=== PATIENT | male | born 1985 | race Caucasian/White ===

== ENCOUNTER 2017-09-25 17:37 | Emergency (ER) | payer OTHER ==
[~2017-09-25] VITALS: Ht 172.7 cm; Wt 75.8 kg
[~2017-09-25 17:37] MED LIST: OMEP40CA41 PO; ONDA4TAB10 SL; PARO10TA PO
[2017-09-25] MEDS ORDERED: SODIUM CHLORIDE 0.9% 1000ML 1,000 ML IV ONE (17:45)
[2017-09-25] MEDS ORDERED: SODIUM CHLORIDE 0.9% 1000ML 1,000 ML IV STA (17:45)
[2017-09-25] MEDS ORDERED: LORAZEPAM 2 MG/ML 1 ML VIAL IV STA (17:45)
[2017-09-25 17:46] VITALS: TEMP 37.1; O2SAT 97; Ht 172.7 cm; Wt 75.8 kg
[2017-09-25 18:01] LABS: BASO % 0.8 %; BASO ABS # 0.08 K/uL (0-0.2); EOS % 0.2 %; EOS ABS # 0.02 K/uL (0-0.5); HEMATOCRIT 46.7 % (42-52); HEMOGLOBIN 15.5 g/dL (14.0-18.0); IG# 0.03 K/uL (0.00-0.02); LYMPH % 13.1 %; LYMPH ABS # 1.25 K/uL (1.2-3.4); MEAN CELL VOLUME 98.1 fL (80-100); MEAN CORPUSCULAR HEMOGLOBIN 32.6 pg (25-34); MEAN CORPUSCULAR HGB CONC 33.2 g/dl (32-36); MEAN PLATELET VOLUME 11.2 fL (7.4-10.4); MONO % 14.9 %; MONO ABS # 1.42 K/uL (0.11-0.59); NEUT % 70.7 %; NEUT ABS # 6.73 K/uL (1.4-6.5); PLATELET COUNT 235 K/uL (130-400); RED CELL DISTRIBUTION WIDTH CV 15.6 % (11.5-14.5); RED CELL DISTRIBUTION WIDTH SD 56.1 fL (36.4-46.3); WHITE BLOOD COUNT 9.53 K/uL (4.8-10.8)
--- NOTE | 2017-09-25 18:13 | EMERGENCY ROOM VISIT NOTE ---
History Report prepared by Shailesh: Filomena Burleson Under the Supervision of: Dr. Dwain Kim M.D. First contact with patient: 17:39 Chief Complaint: SEIZURE Stated Complaint: SEIZURE History of Present Illness The patient is a 31 year old male who presents to the Emergency Room with complaints of an episode of seizure around 30 minutes ago. He presents to the ED by EMS. He was in the cooler at work when his coworkers heard a thud. They found him on the floor. He was foaming at his mouth and had 2 episodes of posturing lasting 10 seconds each. He was found to have bumps on his head and there was blood on the floor of the cooler. He denies any history of seizures. He currently has some head pain in the back of his head. He has some minor neck pain. He does not notice any loose teeth. He has been nauseous which he attributes to starting Paxil recently for anxiety. He was feeling well this morning and has been sleeping normally. He does smoke and use alcohol regularly. He last drank last night. He reports that he is usually able to make it through the day without drinking alcohol. He denies any drug use. He denies having any other medical problems. Source of History: patient, EMS Onset: 30 minutes ago Position: other (generalized) Quality: other (seizure) Timing: other (episodic) Associated Symptoms: + headache, + neck pain, + nausea Review of Systems See HPI for pertinent positives & negatives. A total of 10 systems reviewed and were otherwise negative. Past Medical & Surgical Medical Problems: (1) Anxiety (2) Laceration of fifth finger, left Old medical records were reviewed. Nurse's notes were reviewed and I agree with. Denies history of seizure Family History No pertinent family history stated Social History Smoking Status: Current Every Day Smoker Alcohol Use: heavy Marital Status: single Housing Status: lives alone Occupation Status: employed Current/Historical Medications Scheduled Paroxetine Hcl (Paxil), 10 MG PO DAILY Allergies Coded Allergies: No Known Allergies (Unverified , 09/25/17) Physical Exam Vital Signs Date Time Temp Pulse Resp B/P (MAP) Pulse Ox O2 Delivery O2 Flow Rate FiO2 09/25/17 20:41 99 20 163/88 98 09/25/17 18:41 105 16 155/99 98 Room Air 09/25/17 18:11 109 16 160/95 98 Room Air 09/25/17 18:06 106 09/25/17 17:46 97 Room Air 09/25/17 17:46 37.1 119 18 177/106 98 Room Air Physical Exam General: Non-ill appearing young male who answers questions appropriately, awake and oriented x3. HEENT: Several abrasions on his forehead and scalp. Pupils are equal round and reactive to light. Extraocular movements are intact. Oropharynx is pink with moist mucous membranes. No swelling of the mouth lips or tongue. Neck: Supple with a midline trachea. No meningeal signs or stiffness, no JVD or bruits. No Stridor. Chest: Clear to auscultation bilaterally. No wheezes or rhonchi. No increased work of breathing. Heart: regular rate and rhythm. Abdomen: Soft nontender, nondistended without rebound guarding or rigidity. Extremities: No cyanosis clubbing or edema. No calf tenderness or assymetry Spine/Back. Non tender to palpation. No CVA tenderness Skin: Good turgor without rashes. Neurologic exam: Cranial nerves two through 12 are intact. Motor and sensation are intact and symmetrical throughout. Mildly shaking his arms. Medical Decision & Procedures ER Provider Diagnostic Interpretation: X-ray results as stated below per interpretation by me and the radiologist. Radiology results as stated below per my review and radiologist interpretation: SINGLE VIEW CHEST CLINICAL HISTORY: Atypical chest pain. FINDINGS: An AP, portable, upright chest radiograph is compared to study dated 09/05/2015. The examination is degraded by portable technique and patient rotation. The cardiomediastinal silhouette is unremarkable. The lungs and pleural spaces are clear. No pneumothorax is seen. The bony thorax is grossly intact. Age advanced arthritic change is present in the shoulders. IMPRESSION: No active disease in the chest. Electronically signed by: Gary Souza M.D. 09/25/2017 6:48 PM Dictated Date/Time: 09/25/2017 6:[address] SCAN OF THE BRAIN WITHOUT IV CONTRAST CLINICAL HISTORY: Seizure. COMPARISON STUDY: No priors. TECHNIQUE: Unenhanced axial CT scan of the brain is performed from the vertex to the skull base. A dose lowering technique was utilized adhering to the principles of ALARA. CT DOSE: 1061.71 mGy.cm FINDINGS: Brain parenchyma: The brain parenchyma is normal in appearance. There is no hemorrhage, mass effect, or evidence of acute territorial ischemia by CT criteria. Ennis-white matter is preserved. No extra-axial fluid collection is seen. Ventricles, sulci, cisterns: Normal in configuration. Intracranial vasculature: The visualized intracranial vasculature at the skull base is normal in appearance. Calvarium: Unremarkable. Soft tissues: There is mild right frontal scalp contusion. Sinuses and mastoids: Trace mucosal thickening is seen within a right posterior ethmoid sinus and the left sphenoid sinus. The remaining visualized paranasal sinuses are clear. The mastoid air cells are well pneumatized. Orbits: The bony orbits are grossly intact. IMPRESSION: No acute intracranial abnormality. Electronically signed by: Gary Sozua M.D. 09/25/2017 6:26 PM Dictated Date/Time: 09/25/2017 6:[address] SCAN OF THE CERVICAL SPINE CLINICAL HISTORY: Trauma. Seizure. COMPARISON STUDY: No priors. TECHNIQUE: CT scan of the cervical spine is performed from the skull base to the upper thoracic spine. Images are reviewed in the axial, sagittal, and coronal planes. IV contrast was not administered for this examination. A dose lowering technique was utilized adhering to the principles of ALARA. FINDINGS: Skeletal structures: The skeletal structures are well mineralized. There is no evidence of fracture or subluxation involving the cervical spine. Vertebral body height and alignment are maintained. There is straightening of the cervical lordosis with reversal centered at C4. The odontoid process and lateral masses are intact. The atlantoaxial articulation is preserved noting age advanced productive degenerative change. The spinous processes appear intact. There is calcification of the anterior longitudinal ligament throughout the cervical region. There is also near-complete bony fusion of the facet joints throughout the cervical spine bilaterally. There is partial fusion of the spinous processes of C6 and C7. Degenerative change is seen at the visualized costovertebral joints. Intervertebral discs: The disc spaces are well maintained. Central canal: Widely patent. Soft tissues: The prevertebral and paraspinous soft tissues are within normal limits. Calvarium: The visualized calvarium at the skull base appears intact. Brain parenchyma: Partially visualized brain parenchyma the skull base is within normal limits. Sinuses and mastoids: The visualized paranasal sinuses are clear. The mastoid air cells are well pneumatized. Lung apices: Clear as visualized. IMPRESSION: 1. There is no evidence of fracture or subluxation involving the cervical spine. 2. There is calcification of the anterior longitudinal ligament, near complete fusion of the cervical facet joints, markedly age advanced degenerative change and cyst formation at the atlantodental articulation, and degenerative change at the imaged costovertebral joints. The appearance is highly concerning for ankylosing spondylitis or other seronegative/inflammatory spondyloarthropathy. Rheumatologic follow-up is recommended. Findings were discussed with Dr. Kim in the emergency department at the time of interpretation. Electronically signed by: Gary Souza M.D. 09/25/2017 6:46 PM Dictated Date/Time: 09/25/2017 6:37 PM Laboratory Results 09/25/17 17:25 Red Blood Count 4.76, Mean Corpuscular Volume 98.1, Mean Corpuscular Hemoglobin 32.6, Mean Corpuscular Hemoglobin Concent 33.2, Mean Platelet Volume 11.2, Neutrophils (%) (Auto) 70.7, Lymphocytes (%) (Auto) 13.1, Monocytes (%) (Auto) 14.9, Eosinophils (%) (Auto) 0.2, Basophils (%) (Auto) 0.8, Neutrophils # (Auto ) 6.73, Lymphocytes # (Auto) 1.25, Monocytes # (Auto) 1.42, Eosinophils # (Auto ) 0.02, Basophils # (Auto) 0.08 09/25/17 17:25 Test 09/25/17 17:25 09/25/17 17:56 09/25/17 18:37 White Blood Count 9.53 K/uL (4.8-10.8) Red Blood Count 4.76 M/uL (4.7-6.1) Hemoglobin 15.5 g/dL (14.0-18.0) Hematocrit 46.7 % (42-52) Mean Corpuscular Volume 98.1 fL (80-100) Mean Corpuscular Hemoglobin 32.6 pg (25-34) Mean Corpuscular Hemoglobin Concent 33.2 g/dl (32-36) Platelet Count 235 K/uL (130-400) Mean Platelet Volume 11.2 fL (7.4-10.4) Neutrophils (%) (Auto) 70.7 % Lymphocytes (%) (Auto) 13.1 % Monocytes (%) (Auto) 14.9 % Eosinophils (%) (Auto) 0.2 % Basophils (%) (Auto) 0.8 % Neutrophils # (Auto) 6.73 K/uL (1.4-6.5) Lymphocytes # (Auto) 1.25 K/uL (1.2-3.4) Monocytes # (Auto) 1.42 K/uL (0.11-0.59) Eosinophils # (Auto) 0.02 K/uL (0-0.5) Basophils # (Auto) 0.08 K/uL (0-0.2) RDW Standard Deviation 56.1 fL (36.4-46.3) RDW Coefficient of Variation 15.6 % (11.5-14.5) Immature Granulocyte % (Auto) 0.3 % Immature Granulocyte # (Auto) 0.03 K/uL (0.00-0.02) Anion Gap 20.0 mmol/L (3-11) Est Creatinine Clear Calc Drug Dose 89.3 ml/min Estimated GFR () 96.1 Estimated GFR (Non- 82.9 BUN/Creatinine Ratio 4.1 (10-20) Calcium Level 9.9 mg/dl (8.5-10.1) Magnesium Level 2.0 mg/dl (1.8-2.4) Total Bilirubin 1.6 mg/dl (0.2-1) Direct Bilirubin 0.5 mg/dl (0-0.2) Aspartate Amino Transf (AST/SGOT) 165 U/L (15-37) Alanine Aminotransferase (ALT/SGPT) 135 U/L (12-78) Alkaline Phosphatase 162 U/L (45-117) Total Protein 8.8 gm/dl (6.4-8.2) Albumin 4.5 gm/dl (3.4-5.0) Lipase 161 U/L (73-393) Bedside Troponin I < 0.030 ng/ml (0-0.045) Ethyl Alcohol mg/dL < 3.0 mg/dl (0-3) Laboratory studies as stated above per my review. Medications Administered Medications (Trade) Dose Ordered Sig/Franca Route Start Time Stop Time Status Last Admin Dose Admin Lorazepam (Ativan Inj) 1 mg NOW STAT IV 09/25/17 17:45 09/25/17 17:48 DC 09/25/17 18:02 1 MG Sodium Chloride 1,000 ml @ 999 mls/hr Q1H1M STAT IV 09/25/17 17:45 09/25/17 18:45 DC 09/25/17 18:02 999 MLS/HR Sodium Chloride 1,000 ml @ 150 mls/hr Q6H40M ONCE IV 09/25/17 17:45 09/25/17 21:02 DC 09/25/17 18:02 150 MLS/HR Multivitamins 10 ml/Thiamine HCl 100 mg/Folic Acid 1 mg/Sodium Chloride 1,011.2 ml @ 200 mls/ hr Q5H4M ONCE IV 09/25/17 18:30 09/25/17 21:02 DC 09/25/17 18:30 200 MLS/HR ECG Per My Interpretation Indication: syncope Rate (beats per minute): 105 Rhythm: sinus tachycardia Findings: no acute ischemic change, no ectopy, other (no significant QT prolongation) Comparison ECG Date: 04-Sep-2017 Change: T wave amplitude decreased compared to previous. ED Course 173: Past medical records reviewed. The patient was evaluated in room B4B, and a complete history and physical examination were performed. 1745: Sodium Chloride 1000 ml @ 150 mls/hr IV, Sodium Chloride 1000 ml @ 999 mls /hr IV, Ativan Inj 1 mg IV. 0: Multivitamins 10 ml/Thiamine HCl 100 mg/Folic Acid 1 mg/Sodium Chloride 1011.2 ml @ 200 mls/hr IV. 1835: I reevaluated the patient. He is feeling better. 1847: I reevaluated the patient. He is comfortable, in no distress. 1946: Upon reevaluation, the patient is feeling well. I discussed the results and treatment plan with him. He verbalized agreement of the treatment plan. The patient was discharged home. 2001: I filled out and had the trade union secretary send the [employer] form. Medical Decision Differentials include, but are not limited to; seizure, syncope, electrolyte or metabolic abnormality, alcohol withdrawal, toxicologic. This patient comes in as described above. he apparently had a seizure. He did hit his head. He will reportedly was postictal but is no longer postictal. he is mildly shaky. He does drink alcohol fairly heavily and that could have played a role as well with alcohol withdrawal. He denies any drug ingestions. He is also on Paxil. He is brought in by EMS and was placed on a monitored bed in room B4. His blood sugar was in the 100s and therefore is not the culprit. IV access established EKG was obtained CAT scan of his head neck were obtained as well as a chest x-ray. He had a very extensive workup done to also evaluate him from a cardiac and metabolic standpoint. He has nothing to suggest infection. He has remained stable and seizure-free. CAT scan of his head and neck did not show any acute findings. His blood work shows some mildly elevated LFTs which were the same ranges a month ago. This is likely related to alcohol as he admits to drinking heavily. I was a headache I just needed a body I encouraged him not to drink alcohol. He feels good and would like to go home incidentally on a CT of his neck, he does have findings very concerning for ankylosing spondylitis or another rheumatologic disorder. He tells me that he has never been evaluated for this. I encouraged him to follow-up with his regular doctor and get set up with a factory worker. I also told him that he cannot drive and to avoid any activities where if he had a seizure he would hurt himself or others including swimming and he needs to follow-up with his doctor this week for recheck. He was happy with the plan and discharged to home. Head Trauma GCS Score: 15 Medication Reconcilliation Current Medication List: was personally reviewed by me Blood Pressure Screening Patient's blood pressure: Elevated blood pressure Blood pressure disposition: Elevated BP felt to be situational Impression Primary Impression: Seizure Additional Impressions: Concussion Acquired cervical spine ankylosis Scribe Attestation The scribe's documentation has been prepared under my direction and personally reviewed by me in its entirety. I confirm that the note above accurately reflects all work, treatment, procedures, and medical decision making performed by me. Departure Information Dispostion Home / Self-Care Referrals No Doctor, Assigned (PCP) Forms HOME CARE DOCUMENTATION FORM, IMPORTANT VISIT INFORMATION Patient Instructions My [facility], Seizures - [facility] Additional Instructions Rest. Minimize alcohol use Avoid any situations where if you had a seizure. This includes swimming and driving Return if: Worsening of symptoms, further seizures, any new problems or concerns Follow-up with your doctor tomorrow for recheck. You also have arthritic changes on your CT scan which are concerning for a rheumatologic process such as ankylosing spondylitis. You should have your doctor follow you for this as well as send you to a factory worker. Problem Qualifiers
[2017-09-25 18:20] LABS: ALBUMIN 4.5 gm/dl (3.4-5.0); CALCIUM 9.9 mg/dl (8.5-10.1); CREATININE 1.18 mg/dl (0.60-1.40); POTASSIUM 3.2 mmol/L (3.5-5.1); TOTAL PROTEIN 8.8 gm/dl (6.4-8.2)
--- NOTE | 2017-09-25 18:28 | DIAGNOSTIC IMAGING REPORT ---
CT SCAN OF THE BRAIN WITHOUT IV CONTRAST CLINICAL HISTORY: Seizure. COMPARISON STUDY: No priors. TECHNIQUE: Unenhanced axial CT scan of the brain is performed from the vertex to the skull base. A dose lowering technique was utilized adhering to the principles of ALARA. CT DOSE: 1061.71 mGy.cm FINDINGS: Brain parenchyma: The brain parenchyma is normal in appearance. There is no hemorrhage, mass effect, or evidence of acute territorial ischemia by CT criteria. Ennis-white matter is preserved. No extra-axial fluid collection is seen. Ventricles, sulci, cisterns: Normal in configuration. Intracranial vasculature: The visualized intracranial vasculature at the skull base is normal in appearance. Calvarium: Unremarkable. Soft tissues: There is mild right frontal scalp contusion. Sinuses and mastoids: Trace mucosal thickening is seen within a right posterior ethmoid sinus and the left sphenoid sinus. The remaining visualized paranasal sinuses are clear. The mastoid air cells are well pneumatized. Orbits: The bony orbits are grossly intact. IMPRESSION: No acute intracranial abnormality. Electronically signed by: Gary Souza M.D. 09/25/2017 6:26 PM Dictated Date/Time: 09/25/2017 6:24 PM
[2017-09-25] MEDS ORDERED: MULTI-VITAMIN INFUSION INJ 10 ML, THIAMINE HCL INJ 100 MG, FoLIC ACID INJ 1 MG in SODIU... IV ONE (18:30)
--- NOTE | 2017-09-25 18:48 | DIAGNOSTIC IMAGING REPORT ---
CT SCAN OF THE CERVICAL SPINE CLINICAL HISTORY: Trauma. Seizure. COMPARISON STUDY: No priors. TECHNIQUE: CT scan of the cervical spine is performed from the skull base to the upper thoracic spine. Images are reviewed in the axial, sagittal, and coronal planes. IV contrast was not administered for this examination. A dose lowering technique was utilized adhering to the principles of ALARA. FINDINGS: Skeletal structures: The skeletal structures are well mineralized. There is no evidence of fracture or subluxation involving the cervical spine. Vertebral body height and alignment are maintained. There is straightening of the cervical lordosis with reversal centered at C4. The odontoid process and lateral masses are intact. The atlantoaxial articulation is preserved noting age advanced productive degenerative change. The spinous processes appear intact. There is calcification of the anterior longitudinal ligament throughout the cervical region. There is also near-complete bony fusion of the facet joints throughout the cervical spine bilaterally. There is partial fusion of the spinous processes of C6 and C7. Degenerative change is seen at the visualized costovertebral joints. Intervertebral discs: The disc spaces are well maintained. Central canal: Widely patent. Soft tissues: The prevertebral and paraspinous soft tissues are within normal limits. Calvarium: The visualized calvarium at the skull base appears intact. Brain parenchyma: Partially visualized brain parenchyma the skull base is within normal limits. Sinuses and mastoids: The visualized paranasal sinuses are clear. The mastoid air cells are well pneumatized. Lung apices: Clear as visualized. IMPRESSION: 1. There is no evidence of fracture or subluxation involving the cervical spine. 2. There is calcification of the anterior longitudinal ligament, near complete fusion of the cervical facet joints, markedly age advanced degenerative change and cyst formation at the atlantodental articulation, and degenerative change at the imaged costovertebral joints. The appearance is highly concerning for ankylosing spondylitis or other seronegative/inflammatory spondyloarthropathy. Rheumatologic follow-up is recommended. Findings were discussed with Dr. Kim in the emergency department at the time of interpretation. Electronically signed by: Gary Souza M.D. 09/25/2017 6:46 PM Dictated Date/Time: 09/25/2017 6:37 PM
--- NOTE | 2017-09-25 18:50 | DIAGNOSTIC IMAGING REPORT ---
SINGLE VIEW CHEST CLINICAL HISTORY: Atypical chest pain. FINDINGS: An AP, portable, upright chest radiograph is compared to study dated 09/05/2015. The examination is degraded by portable technique and patient rotation. The cardiomediastinal silhouette is unremarkable. The lungs and pleural spaces are clear. No pneumothorax is seen. The bony thorax is grossly intact. Age advanced arthritic change is present in the shoulders. IMPRESSION: No active disease in the chest. Electronically signed by: Gary Souza M.D. 09/25/2017 6:48 PM Dictated Date/Time: 09/25/2017 6:47 PM
[2017-09-25 20:41] VITALS: BP 163/88; PULSE 99; O2SAT 98
== END 2017-09-25 20:30 | disposition home or self-care (01) ==
LOC: EDBD 17:37 → C.EDB 17:38
DX: R56.9 Unspecified convulsions (principal); S06.0X0A Concussion without loss of consciousness, initial encounter; W22.8XXA Striking against or struck by other objects, initial encounter; R93.7 Abnormal findings on diagnostic imaging of other parts of musculoskeletal system; R94.5 Abnormal results of liver function studies; R40.2412 Glasgow coma scale score 13-15, at arrival to emergency department; R03.0 Elevated blood-pressure reading, without diagnosis of hypertension; M54.2 Cervicalgia; F17.200 Nicotine dependence, unspecified, uncomplicated; F41.9 Anxiety disorder, unspecified; Z79.899 Other long term (current) drug therapy